=== PATIENT | female | born 1995 | race African-American/Black ===

== ENCOUNTER 2019-11-27 15:04 | Emergency (ER) | payer SELFPAY ==
[~2019-11-27] VITALS: Ht 172.7 cm; Wt 86.4 kg
[2019-11-27 15:06] VITALS: BP 154/97
[2019-11-27] MEDS ORDERED: DEXAMETHASONE 4 MG TABLET PO STA (15:18)
[2019-11-27] MEDS ORDERED: PENICILLIN G BENZATHINE LA 1,200,000 UNIT/2 ML DISP.SYRIN. IM STA (15:18)
--- NOTE | 2019-11-27 15:28 | PHYS DOC ---
Past Medical History Past Medical History: No Pertinent History (GEO LAMBERT APRN) Past Surgical History: No Surgical History (GEO LAMBERT APRN) Smoking Status: Current Every Day Smoker Additional Information: 3 CIGARETTES A DAY Alcohol Use: Occasionally (GEO LAMBERT APRN) Adult General Chief Complaint Chief Complaint: SORE THROAT [facility] HPI Patient is a 24 year old female who presents with sore throat this been ongoing since November 20. The patient was seen at [facility] on Wednesday and diagnosed with strep throat. The patient was given an unknown antibiotic which she says has not yet worked. She says that she had take a certain number of pills on Wednesday and then decrease the amount of pills throughout the weekend until she has run out today. She has been taking Tylenol in the antibiotic to try to help with the symptoms. She also states she is been running a fever. Complete ROS were reviewed and found to be within normal limits, except as documented in the HPI (GEO LAMBERT APRN) Current Medications Current Medications Current Medications Medications (Trade) Dose Ordered Sig/Balta Start Time Stop Time Status Last Admin Dose Admin Dexamethasone (Decadron) 10 mg 1X STAT 11/27/19 15:18 11/27/19 15:21 DC 11/27/19 15:25 10 MG Penicillin G Benzathine (Bicillin L-A) 1,200,000 unit 1X STAT 11/27/19 15:18 11/27/19 15:21 DC 11/27/19 15:25 1,200,000 UNIT (GEO SAUCEDA DO) Allergies Allergies Allergies Coded Allergies Type Severity Reaction Last Updated Verified ibuprofen Allergy Mild HIVES, STOMACH PAINS 11/27/19 Yes (GEO SAUCEDA DO) Physical Exam Physical Exam Constitutional: Well developed, well nourished, no acute distress, non-toxic appearance. [] HENT: Normocephalic, atraumatic, bilateral external ears normal, oropharynx moist, tonsils are 2+/4 with no oral exudates, nose normal. [] Eyes: PERRLA, EOMI, conjunctiva normal, no discharge. [] Neck: Normal range of motion, no tenderness, supple, no stridor. [] Cardiovascular:Heart rate regular rhythm, no murmur [] Lungs & Thorax: Bilateral breath sounds clear to auscultation [] Skin: Warm, dry, no erythema, no rash. [] Neurologic: Alert and oriented X 3, normal motor function, normal sensory funct ion, no focal deficits noted. [] Psychologic: Affect normal, judgement normal, mood normal. [] (GEO LAMBERT APRN) Current Patient Data Vital Signs Vital Signs Date Time Temp Pulse Resp B/P (MAP) Pulse Ox O2 Delivery O2 Flow Rate FiO2 11/27/19 15:06 98.3 85 19 154/97 (116) 97 Room Air 98.3 (GEO SAUCEDA DO) EKG EKG [] (GEO LAMBERT APRN) Radiology/Procedures Radiology/Procedures [] (GEO LAMBERT APRN) Course & Med Decision Making Course & Med Decision Making Pertinent Labs and Imaging studies reviewed. (See chart for details) The patient tested positive for strep throat at research. We will give the patient Decadron and IM penicillin here in the ER. It is likely that she was given Zithromax at research which does not appear to be optimal treatment for strep throat. (GEO LAMBERT APRN) Dragon Disclaimer Dragon Disclaimer This electronic medical record was generated, in whole or in part, using a voice recognition dictation system. (GEO LAMBERT APRN) Departure Departure Impression: Primary Impression: Pharyngitis, acute Disposition: 01 HOME, SELF-CARE Condition: STABLE Referrals: NO PCP (PCP) Patient Instructions: Strep Throat Additional Instructions: Thank you for visiting [facility]. We appreciate you trusting us with your care. If any additional problems come up don't hesitate to return to visit us. Please follow up with your primary care provider so they can plan additional care if needed and know about the problem that you had. If symptoms worsen come back to the Emergency Department. Any concerning symptoms that start such as chest pain, shortness of air, weakness or numbness on one side of the body, running high fevers or any other concerning symptoms return to the ER. You were given a IM shot of penicillin in the ER. This should clear up your strep throat. Attending Signature Attending Signature I have reviewed the PA/DIGITAL ADVISOR's note and plan of care. I was available for consultation as needed during the patient's visit in the emergency department. I agree with the clinical impression, plan, and disposition. (SAUCEDA,GEO R DO) Problem Qualifiers Primary Impression: Pharyngitis, acute Pharyngitis/tonsillitis etiology: streptococcus Qualified Codes: J02.0 - Streptococcal pharyngitis GEO LAMBERT APRN Nov 27, 2019 15:28 EGO SAUCEDA DO Nov 27, 2019 20:39
== END 2019-11-27 15:34 | disposition home or self-care (01) ==
LOC: ER 15:04
DX: J02.0 Streptococcal pharyngitis (principal); B96.89 Other specified bacterial agents as the cause of diseases classified elsewhere; R50.9 Fever, unspecified; F17.210 Nicotine dependence, cigarettes, uncomplicated; Z88.6 Allergy status to analgesic agent
CPT/HCPCS: 96372; 99283; J0561; J8540